=== PATIENT | male | born 1985 | race Caucasian/White ===

== ENCOUNTER 2017-12-10 04:06 | Emergency (ER) | payer BC ==
[2017-12-10 04:14] VITALS: RESP 18
[2017-12-10] MEDS ORDERED: SODIUM CHLORIDE 0.9% 500 ML IV STA (04:45)
[2017-12-10 06:00] LABS: Basophils % (A) 0 %; Eosinophils # (A) 0.1 k/uL (0-0.7); Eosinophils % (A) 1 %; HCT 42.6 % (39.0-53.0); HGB 14.2 gm/dL (13.0-17.5); Lymphocytes # (A) 0.8 k/uL (1.0-4.8); Lymphocytes % (A) 9 %; MCH 30.6 pg (25.0-35.0); MCHC 33.3 g/dL (31.0-37.0); MCV 91.7 fL (80.0-100.0); Mean Platelet Volume 7.3; Monocytes # (A) 0.2 k/uL (0-1.0); Monocytes % (A) 3 %; Neutrophils # (A) 7.6 k/uL (1.3-7.7); Neutrophils % (A) 86 %; Platelet Count 228 k/uL (150-450); RBC 4.64 m/uL (4.30-5.90); RDW 12.8 % (11.5-15.5); WBC 8.8 k/uL (3.8-10.6)
[2017-12-10 06:04] LABS: INR 1.2 (<1.2); Prothrombin Time 11.3 sec (9.0-12.0)
[2017-12-10 06:04] LABS: Appearance,Urine Clear (Clear); Bacteria,Urine Rare /hpf; Bilirubin,Urine Negative (Negative); Blood,Urine Large (Negative); Color,Urine Colorless; Glucose,Urine (UA) Negative (Negative); Ketones,Urine Negative (Negative); Leukocyte Esterase,Urine Negative (Negative); Mucus,Urine Rare /hpf; Nitrite,Urine Negative (Negative); PH, Urine 5.5 (5.0-8.0); Protein,Urine Negative (Negative); RBC,Urine <1 /hpf (0-5); Specific Gravity,Urine 1.001 (1.001-1.035); Urobilinogen,Urine <2.0 mg/dL (<2.0); WBC,Urine <1 /hpf (0-5)
--- NOTE | 2017-12-10 06:25 | ED ---
Male Urogenital HPI - General Chief complaint: Urogenital Stated complaint: Male Time Seen by Provider: 12/10/17 04:36 Source: patient Mode of arrival: ambulatory Limitations: no limitations - History of Present Illness Initial comments: This patient is a 32-year-old man who presents to be evaluated for bleeding from the urethral meatus. Patient states that this had started just prior to arrival here. He states that he had been drinking and that when he does drink he has very vivid dreams. He states he had dreamed about something being in his urethra and believes that while he was asleep he was attempting to scratch at this. When he woke he found that there was some bleeding from the urethral meatus. He states that he had to basically hold his urethra close to stop the bleeding. Patient denies any symptoms of anemia, including no chest pain, dyspnea, lightheadedness, palpitations or syncope. No history of bleeding disorder MD Complaint: other (Urethral bleeding) Onset/Timin -: hour(s) Location: penis Radiation: none Improves with: none Worsens with: urination - Related Data Previous Rx's Medication Instructions Recorded Naproxen [Naprosyn] 500 mg PO Q12HR #30 tab 06/08/14 Ibuprofen [Motrin] 800 mg PO Q6HR PRN #20 tab 08/28/15 Allergies Allergy/AdvReac Type Severity Reaction Status Date / Time No Known Allergies Allergy Verified 12/10/17 04:13 Review of Systems ROS Statement: Those systems with pertinent positive or pertinent negative responses have been documented in the HPI. ROS Other: All systems not noted in ROS Statement are negative. Constitutional: Denies: weakness Respiratory: Denies: cough, dyspnea Cardiovascular: Denies: chest pain, palpitations, syncope Gastrointestinal: Denies: abdominal pain Genitourinary: Reports: as per HPI, discharge (Blood). Denies: dysuria, frequency, hematuria, testicular pain, testicular mass Musculoskeletal: Denies: back pain Skin: Denies: rash Past Medical History Past Medical History: No Reported History History of Any Multi-Drug Resistant Organisms: None Reported Past Surgical History: No Surgical Hx Reported Past Psychological History: No Psychological Hx Reported Smoking Status: Never smoker Past Alcohol Use History: Occasional Past Drug Use History: None Reported General Exam Limitations: no limitations General appearance: alert, in no apparent distress Head exam: Present: atraumatic, normocephalic Eye exam: Present: normal appearance. Absent: scleral icterus, conjunctival injection Respiratory exam: Present: normal lung sounds bilaterally. Absent: respiratory distress, wheezes, rales, rhonchi, stridor Cardiovascular Exam: Present: regular rate, normal rhythm, normal heart sounds. Absent: systolic murmur, diastolic murmur, rubs, gallop GI/Abdominal exam: Present: soft. Absent: distended, tenderness, guarding, rebound, mass exam: Present: circumcision, other (Gen. inspection reveals essentially normal genitals with the exception that there is a small laceration to the mucosa of the urethral meatus located on the patient's left side. The lacerations approximately 4 mm in length, and superficial. Currently no active bleeding). Absent: testicular tenderness, scrotal swelling Extremities exam: Present: normal inspection, normal capillary refill Back exam: Absent: CVA tenderness (R), CVA tenderness (L) Neurological exam: Present: alert Skin exam: Present: warm, dry, intact, normal color. Absent: rash Course Vital Signs 12/10/17 12/10/17 04:10 06:43 Temperature 98.3 F 98 F Pulse Rate 91 89 Respiratory 18 18 Rate Blood Pressure 162/79 139/67 O2 Sat by Pulse 97 97 Oximetry Medical Decision Making - Medical Decision Making The patient did have good hemostasis throughout his stay here. The patient did urinate once in the department to ensure that this did not cause a recurrence of bleeding. We discussed appropriate further care and follow-up. - Lab Data Result diagrams: 12/10/17 05:50 Lab Results 12/10/17 12/10/17 12/10/17 Range/Units 05:50 05:50 05:55 WBC 8.8 (3.8-10.6) k/uL RBC 4.64 (4.30-5.90) m/uL Hgb 14.2 (13.0-17.5) gm/dL Hct 42.6 (39.0-53.0) % MCV 91.7 (80.0-100.0) fL MCH 30.6 (25.0-35.0) pg MCHC 33.3 (31.0-37.0) g/dL RDW 12.8 (11.5-15.5) % Plt Count 228 (150-450) k/uL Neutrophils % 86 % Lymphocytes % 9 % Monocytes % 3 % Eosinophils % 1 % Basophils % 0 % Neutrophils # 7.6 (1.3-7.7) k/uL Lymphocytes # 0.8 L (1.0-4.8) k/uL Monocytes # 0.2 (0-1.0) k/uL Eosinophils # 0.1 (0-0.7) k/uL Basophils # 0.0 (0-0.2) k/uL PT 11.3 (9.0-12.0) sec INR 1.2 H (<1.2) Urine Color Colorless Urine Appearance Clear (Clear) Urine pH 5.5 (5.0-8.0) Ur Specific [place] 1.001 (1.001-1.035) Urine Protein Negative (Negative) Urine Glucose (UA) Negative (Negative) Urine Ketones Negative (Negative) Urine Blood Large H (Negative) Urine Nitrite Negative (Negative) Urine Bilirubin Negative (Negative) Urine Urobilinogen <2.0 (<2.0) mg/dL Ur Leukocyte Esterase Negative (Negative) Urine RBC <1 (0-5) /hpf Urine WBC <1 (0-5) /hpf Urine Bacteria Rare H (None) /hpf Urine Mucus Rare H (None) /hpf Disposition Clinical Impression: Urethral injury Disposition: HOME SELF-CARE Condition: Good Instructions: Laceration (ED) Is patient prescribed a controlled substance at d/c from ED?: No Referrals: None,Stated [Primary Care Provider] - 1-2 days Clarence Duncan MD [STAFF PHYSICIAN] - 1-2 days
[2017-12-10 06:44] VITALS: BP 139/67; PULSE 89; TEMP 98
== END 2017-12-10 06:45 | disposition home or self-care (01) ==
LOC: EC 04:06
DX: S37.33XA Laceration of urethra, initial encounter (principal); X58.XXXA Exposure to other specified factors, initial encounter
CPT/HCPCS: 36415; 81001; 85025; 85610; 96360; 99283

== ENCOUNTER 2022-01-29 16:39 | Emergency (ER) | payer BC ==
--- NOTE | 2022-01-29 18:33 | ED ---
General Adult HPI - General Chief complaint: Chest Pain Stated complaint: Chest pains,L hand numbness Time Seen by Provider: 01/29/22 18:08 Source: patient Mode of arrival: ambulatory Limitations: no limitations - History of Present Illness Initial comments: Dictation was produced using [employer] dictation software. please excuse any grammatical, word or spelling errors. Chief Complaint: 36-year-old male presents emergency Department with palpitations History of Present Illness: Is a 28-year-old male past medical history of anxiety presents to the emergency department for couple days of palpitations. He feels like his heart is beating out of his chest. Patient does not have any medical problems except for anxiety. No strong family history of cardiac disease. Patient is very active and bikes several miles on a regular basis. Patient denies that his symptoms are chest pain. Denies any shortness of breath. No leg swelling. The ROS documented in this emergency department record has been reviewed and confirmed by me. Those systems with pertinent positive or negative responses have been documented in the HPI. All other systems are other negative and/or noncontributory. PHYSICAL EXAM: General Impression: Alert and oriented x3, not in acute distress HEENT: Normocephalic atraumatic, extra-ocular movements intact, pupils equal and reactive to light bilaterally, mucous membranes moist. Cardiovascular: Heart regular rate and rhythm Chest: Able to complete full sentences, no retractions, no tachypnea Abdomen: abdomen soft, non-tender, non-distended, no organomegaly Musculoskeletal: Pulses present and equal in all extremities, no peripheral edema Motor: no focal deficits noted Neurological: CN II-XII grossly intact, no focal motor or sensory deficits noted Skin: Intact with no visualized rashes Psych: Anxious ED course: 36-year-old anxious male presents emergency Department chief complaint of palpitations. Vital signs upon arrival are within acceptable limits. Abdomen evaluation obtained. CBC, coag panel, metabolic panel is unremarkable. Cardiac labs negative. Chest x-ray is nonacute. Patient be evaluated at bedside at 8:30 PM finally stable medical condition. Patient be discharged. Patient given referral to cardiology. EKG interpretation: Ventricular rate 82, sinus rhythm, NJ interval 196, QS 102, QTc 385. No NJ prolongation, no QTC prolongation, no ST or T-wave changes noted. EKG compared to 08/28/2015 showing no changes. Overall, this EKG is unremarkable - Related Data Home Medications Medication Instructions Recorded Confirmed No Known Home Medications 01/29/22 01/29/22 Allergies Allergy/AdvReac Type Severity Reaction Status Date / Time No Known Allergies Allergy Verified 01/29/22 20:25 Review of Systems ROS Statement: Those systems with pertinent positive or pertinent negative responses have been documented in the HPI. ROS Other: All systems not noted in ROS Statement are negative. Past Medical History Past Medical History: No Reported History History of Any Multi-Drug Resistant Organisms: None Reported Past Surgical History: No Surgical Hx Reported Past Psychological History: Anxiety Smoking Status: Never smoker Past Alcohol Use History: Heavy Past Drug Use History: None Reported General Exam Limitations: no limitations Course Vital Signs 01/29/22 01/29/22 01/29/22 16:41 18:00 19:20 Temperature 98.1 F 98.2 F Pulse Rate 91 77 93 Respiratory 16 18 16 Rate Blood Pressure 157/92 146/91 145/91 O2 Sat by Pulse 100 100 100 Oximetry Medical Decision Making - Lab Data Result diagrams: 01/29/22 18:54 01/29/22 18:54 Lab Results 01/29/22 01/29/22 01/29/22 Range/Units 18:54 18:54 18:54 WBC 6.1 (3.8-10.6) k/uL RBC 4.71 (4.30-5.90) m/uL Hgb 14.8 (13.0-17.5) gm/dL Hct 41.8 (39.0-53.0) % MCV 88.8 (80.0-100.0) fL MCH 31.5 (25.0-35.0) pg MCHC 35.4 (31.0-37.0) g/dL RDW 12.5 (11.5-15.5) % Plt Count 210 (150-450) k/uL MPV 8.0 Neutrophils % 76 % Lymphocytes % 18 % Monocytes % 5 % Eosinophils % 0 % Basophils % 0 % Neutrophils # 4.6 (1.3-7.7) k/uL Lymphocytes # 1.1 (1.0-4.8) k/uL Monocytes # 0.3 (0-1.0) k/uL Eosinophils # 0.0 (0-0.7) k/uL Basophils # 0.0 (0-0.2) k/uL PT 11.3 (9.0-12.0) sec INR 1.1 (<1.2) APTT 25.1 (22.0-30.0) sec Sodium 138 (137-145) mmol/L Potassium 3.6 (3.5-5.1) mmol/L Chloride 100 (98-107) mmol/L Carbon Dioxide 25 (22-30) mmol/L Anion Gap 13 mmol/L BUN 15 (9-20) mg/dL Creatinine 0.85 (0.66-1.25) mg/dL Est GFR (CKD-EPI)AfAm >90 (>60 ml/min/1.73 sqM) Est GFR (CKD-EPI)NonAf >90 (>60 ml/min/1.73 sqM) Glucose 89 (74-99) mg/dL Calcium 9.8 (8.4-10.2) mg/dL Troponin I (0.000-0.034) ng/mL NT-Pro-B Natriuret Pep pg/mL 01/29/22 01/29/22 Range/Units 18:54 18:54 WBC (3.8-10.6) k/uL RBC (4.30-5.90) m/uL Hgb (13.0-17.5) gm/dL Hct (39.0-53.0) % MCV (80.0-100.0) fL MCH (25.0-35.0) pg MCHC (31.0-37.0) g/dL RDW (11.5-15.5) % Plt Count (150-450) k/uL MPV Neutrophils % % Lymphocytes % % Monocytes % % Eosinophils % % Basophils % % Neutrophils # (1.3-7.7) k/uL Lymphocytes # (1.0-4.8) k/uL Monocytes # (0-1.0) k/uL Eosinophils # (0-0.7) k/uL Basophils # (0-0.2) k/uL PT (9.0-12.0) sec INR (<1.2) APTT (22.0-30.0) sec Sodium (137-145) mmol/L Potassium (3.5-5.1) mmol/L Chloride (98-107) mmol/L Carbon Dioxide (22-30) mmol/L Anion Gap mmol/L BUN (9-20) mg/dL Creatinine (0.66-1.25) mg/dL Est GFR (CKD-EPI)AfAm (>60 ml/min/1.73 sqM) Est GFR (CKD-EPI)NonAf (>60 ml/min/1.73 sqM) Glucose (74-99) mg/dL Calcium (8.4-10.2) mg/dL Troponin I <0.012 (0.000-0.034) ng/mL NT-Pro-B Natriuret Pep 36 pg/mL Disposition Clinical Impression: Palpitations Disposition: HOME SELF-CARE Condition: Good Instructions (If sedation given, give patient instructions): Heart Palpitations (ED) Is patient prescribed a controlled substance at d/c from ED?: No Referrals: Wild Hartman DO [STAFF PHYSICIAN] - 1-2 days Time of Disposition: 20:31
--- NOTE | 2022-01-29 19:20 | XR ---
EXAMINATION TYPE: XR chest 2V DATE OF EXAM: 01/29/2022 COMPARISON: NONE HISTORY: Chest pain TECHNIQUE: 2 view FINDINGS: Heart and mediastinum are normal. Lungs are clear. Diaphragm is normal. Bony thorax is inta ct. IMPRESSION: Normal chest.
[2022-01-29 19:23] VITALS: RESP 16
[2022-01-29 19:24] LABS: Basophils % (A) 0 %; Eosinophils % (A) 0 %; HCT 41.8 % (39.0-53.0); HGB 14.8 gm/dL (13.0-17.5); Lymphocytes # (A) 1.1 k/uL (1.0-4.8); Lymphocytes % (A) 18 %; MCH 31.5 pg (25.0-35.0); MCHC 35.4 g/dL (31.0-37.0); MCV 88.8 fL (80.0-100.0); Monocytes # (A) 0.3 k/uL (0-1.0); Monocytes % (A) 5 %; Neutrophils # (A) 4.6 k/uL (1.3-7.7); Neutrophils % (A) 76 %; Platelet Count 210 k/uL (150-450); RBC 4.71 m/uL (4.30-5.90); RDW 12.5 % (11.5-15.5); WBC 6.1 k/uL (3.8-10.6)
[2022-01-29 19:31] LABS: African American GFR (CKD) >90 (>60 ml/min/1.73 sqM); Anion Gap 13 mmol/L; Blood Urea Nitrogen 15 mg/dL (9-20); Calcium 9.8 mg/dL (8.4-10.2); Carbon Dioxide 25 mmol/L (22-30); Chloride 100 mmol/L (98-107); Glucose 89 mg/dL (74-99); Non-African American GFR(CKD) >90 (>60 ml/min/1.73 sqM); Potassium 3.6 mmol/L (3.5-5.1); Sodium 138 mmol/L (137-145)
[2022-01-29 19:35] LABS: INR 1.1 (<1.2); Prothrombin Time 11.3 sec (9.0-12.0)
[2022-01-29 19:36] LABS: Partial Thromboplastin Time 25.1 sec (22.0-30.0)
[2022-01-29 20:49] VITALS: BP 141/88; PULSE 68; TEMP 98
== END 2022-01-29 20:43 | disposition home or self-care (01) ==
LOC: EC 16:39
DX: R00.2 Palpitations (principal); I20.9 Angina pectoris, unspecified; R20.2 Paresthesia of skin
CPT/HCPCS: 36415; 71046; 80048; 83880; 84484; 85025; 85610; 85730; 93005; 99285